=== PATIENT | male | born 1985 | race Caucasian/White ===

== ENCOUNTER 2016-10-07 15:39 | Emergency (ER) | payer OTHER ==
[~2016-10-07] VITALS: Ht 185.4 cm; Wt 99.8 kg
[2016-10-07] MEDS ORDERED: ACETAMINOPHEN 650 MG/20.3 ML UDC PO STA (16:31)
[2016-10-07] MEDS ORDERED: ACETAMINOPHEN 325 MG TABLET ONE (16:34)
--- NOTE | 2016-10-07 16:41 | NUR ---
PT LEFT FOR XRAY. WALKING.
--- NOTE | 2016-10-07 16:48 | NUR ---
PT RETURNED FROM CT.
--- NOTE | 2016-10-07 16:57 | NUR ---
PT REC'D ICE PACKS X2.
[2016-10-07 17:31] VITALS: BP 125/68
== END 2016-10-07 17:32 | disposition home or self-care (01) ==
LOC: ER 15:41
DX: S60.221A Contusion of right hand, initial encounter (principal); V43.62XA Car passenger injured in collision with other type car in traffic accident, initial encounter; Y92.89 Other specified places as the place of occurrence of the external cause; Y92.413 State road as the place of occurrence of the external cause; Y99.8 Other external cause status
CPT/HCPCS: 73130; 99284; A4606; Z7610